=== PATIENT | female | born 1950 | race Caucasian/White ===

== ENCOUNTER 2018-12-18 18:40 | Inpatient (IN) | payer MEDICARE, BC ==
[~2018-12-18] VITALS: Ht 152.4 cm; Wt 67.6 kg
[2018-12-18 18:43] VITALS: BP 171/100
[2018-12-18] MEDS ORDERED: LEVAQUIN 500 M500 M2 PO (18:47)
[2018-12-18 19:46] LABS: BE -0.2 mmol/L (-2 to +3); PCO2 30.9 mmHg (35.0-45.0); pH 7.477 (7.340-7.450)
[2018-12-18 19:54] LABS: PO2 58.7 mmHg (75.0-100.0)
[2018-12-18 19:59] LABS: ABSOLUTE LYMPHOCYTES 0.4 thou/uL (0.8-5.3); NUCLEATED RBCS 0 /100WBC
[2018-12-18 20:00] LABS: ABSOLUTE MONOCYTES 0.3 thou/uL (0.0-1.2); ABSOLUTE NEUTROPHILS 3.1 thou/uL (1.6-8.1); BASOPHILS 0.3 %; HEMATOCRIT 41.2 % (37.0-47.0); HEMOGLOBIN 14.4 gm/dL (12.0-15.0); LYMPHOCYTES 11.6 %; MCH 30.4 pg (26.0-34.0); MCHC 34.8 g/dL (28.0-37.0); MCV 87.4 fL (80.0-100.0); MONOCYTES 7.6 %; PLATELET COUNT* 112 thou/uL (150-400); POLYS 80.5 %; RBC 4.72 mil/uL (4.20-5.00); RDW-CV 13.5 % (10.5-14.5); WBC 3.8 thou/uL (4.0-11.0)
[2018-12-18 20:03] LABS: CALCIUM 9.2 mg/dL (8.5-10.1); CREATININE 0.8 mg/dL (0.6-1.3)
[2018-12-18 20:11] LABS: TOTAL BILIRUBIN 0.6 mg/dL (<0.1-1.0); TOTAL PROTEIN 8.2 g/dL (6.4-8.2)
[2018-12-18 20:45] LABS: URINE BILIRUBIN NEGATIVE (Negative); URINE BLOOD TRACE (Negative); URINE CLARITY CLEAR; URINE COLOR YELLOW; URINE GLUCOSE-RANDOM NEGATIVE (Negative); URINE KETONES 1+ (Negative); URINE LEUKOCYTES-REFLEX NEGATIVE (Negative); URINE NITRITE-REFLEX NEGATIVE (Negative); URINE PROTEIN TRACE (Negative); URINE SPECIFIC GRAVITY 1.025 (1.005-1.030)
[2018-12-18 20:57] LABS: APTT 20.1 Seconds (25.0-31.3); INR 1.2; PROTIME 12.4 Seconds (9.20-11.50)
[2018-12-18 20:58] LABS: BACTERIA-REFLEX 1-9 Few /HPF (None Seen); CASTS None Seen /LPF (None Seen); CRYSTALS None Seen /LPF (None Seen); SQUAMOUS 0-3 Few /LPF (0-3); URINE RBC 0-2 Rare /HPF (0-2); URINE WBC-REFLEX 0-5 Rare /HPF (0-5)
[2018-12-18 23:00] VITALS: BP 140/76
[2018-12-18 23:05] VITALS: BP 144/81
--- NOTE | 2018-12-18 23:30 | NUR ---
REPORT RECEIVED FROM ER, PT ADMITTED TO ROOM. O2 ON AT 3L/NC, NO SOB NOTED. FAMILY AT BEDSIDE. TELEMETRY ON SHOWING SR. PT AFEBRILE AT THIS TIME. SEE ADMISSION ASSESSMENT AND HX. PT CONCERNED ABOUT NO ANTIBIOTICS. LONG DISCUSSION ABOUT TESTS COMING BACK NEG, AFEBRILE AND IVF ORDERS AT THIS TIME. WILL CONT TO MONITOR AND ASSIST NEEDED.
[2018-12-18] MEDS ORDERED: SYNTHROID75 MCG PO (23:54)
[2018-12-19 04:00] VITALS: BP 134/62
--- NOTE | 2018-12-19 05:55 | NUR ---
SLEPT WELL. ASSISTED TO AND FROM BR WITH STEADY GAIT. TEMP 99.0 AND 99.2. DENIES COMPLAINTS. TELEMETRY CONT TO SHOW SR. O2 ON AT 3L/NC, NO SOB NOTED. HS GOALS OF REST AND SAFETY ACHIEVED. HOURLY ROUNDING OBSERVED.
[2018-12-19 07:57] VITALS: BP 147/73
[2018-12-19 08:42] LABS: HEMATOCRIT 38.9 % (37.0-47.0); HEMOGLOBIN 13.7 gm/dL (12.0-15.0); MCH 30.7 pg (26.0-34.0); MCHC 35.1 g/dL (28.0-37.0); MCV 87.4 fL (80.0-100.0); MPV 7.9 fl. (7.2-11.1); RBC 4.45 mil/uL (4.20-5.00); RDW-CV 13.4 % (10.5-14.5); WBC 2.8 thou/uL (4.0-11.0)
[2018-12-19 08:55] LABS: ALBUMIN 3.5 g/dL (3.4-5.0); CALCIUM 8.5 mg/dL (8.5-10.1); CREATININE 0.6 mg/dL (0.6-1.3); POTASSIUM 3.2 mmol/L (3.5-5.1); TOTAL BILIRUBIN 0.7 mg/dL (<0.1-1.0); TOTAL PROTEIN 7.2 g/dL (6.4-8.2)
--- NOTE | 2018-12-19 09:34 | NUR ---
ASSUMED CARE OF PT THIS AM AROUND 0715- COMPLIANCE TECHNICIAN IN PLACE ORDERED, TRACING ST- UPON ASSESSMENT PT NOTED TO BE RESTING IN BED, DAUGHTER AT SIDE- PT A&O X4- CONTINENT OF BOWEL AND BLADDER- SBA WITH TRANSFERS FOR SAFETY- LCTA, RESP EVEN AND UN-LABORED- TEMP NOTED AT 101.7 THIS AM, PRN TYLENOL GIVEN; O2 98% ON 3L VIA NC THIS AM- ABD SOFT/ROUND/NON-TENDER, BS X4 QUADS- LAST BM REPORTED X2 DAYS AGO- ABD US ORDERED AND COMPLETED THIS AM WITH RESULS PENDING AT THIS TIME- IV NOTED TO LEFT AC INTACT, IVF INFUSSING PRESCIBED-PT DENIES ANY C/O PAIN THIS AM- CALL LIGHT AND PERSONAL BELONGINGS WITH IN REACH- HOURLY ROUNDS IN PLACE R/T SAFETY/NEEDS- ALL NEEDS MET AT THIS TIME-WCTM
[2018-12-19 10:34] LABS: INFLUENZA A ANTIGEN None Detected (None Detect); INFLUENZA B ANTIGEN None Detected (None Detect)
[2018-12-19 11:30] VITALS: BP 126/67
[2018-12-19 12:24] VITALS: BP 139/74
--- NOTE | 2018-12-19 13:59 | NUR ---
MET WITH PT'S DTR TO DISCUSS HOME SITUATION/DC PLANNING, PT SLEEPING. PT LIVES WITH SPOUSE AND IS 'FIERCLY' INDEPENDENT PER DTR. USES NO EQUIPMENT AND HAS NOT HAD HH. PLAN IS FOR HER TO RETURN HOME AT DC. WILL FOLLOW
[2018-12-19 16:00] VITALS: BP 133/55
--- NOTE | 2018-12-19 16:41 | EKG ---
[place] [address] ELECTROCARDIOGRAM REPORT Name: SHANE CANADA Room: [address] ADM IN M.R.#: [id number] Admission: 12/18/18 Attend Phys: Enoch Solano MD Discharge: Date of : 48 Report #: [id number] THIS REPORT FOR: //name// [facility] ED Test Date: 2018-12-18 Test Time: 20:03:11 Pat Name: SHANE CANADA Department: Room: [facility] Gender: F Banking Analyst: RENETTA : 1950 Requested By: Anuja Peñaloza Order Number: [id number] MD: Reymundo Solomon Measurements Intervals [place] Rate: 103 P: 32 MS: 144 QRS: 24 QRSD: 91 T: -8 QT: 330 QTc: 432 Interpretive Statements Sinus tachycardia Probable left atrial enlargement Borderline T abnormalities, diffuse leads No previous ECG available for comparison Electronically Signed On 12-19-2018 16:41:41 CDT by Reymundo Solomon [email or web address] <ELECTRONICALLY SIGNED> By: Reymundo Solomon MD, [facility] 12/19/18 1641 02 02 Reymundo Solomon MD, FAC /EPI
--- NOTE | 2018-12-19 17:21 | NUR ---
PT CURRENTLY RESTING IN BED, DAUGHTER AT SIDE- TOP COLLAR MAKER IN PLACE ORDERED, TRACING SR- IV TO LEFT AC INTACT, IVF INFUSSING PRESCIBED- ID HERE TO ASSESS THIS SHIFT WITH DOXYCYCLINE IV AND ROCEPHIN IV ORDERED WITH 1ST DOSES GIVEN THIS SHIFT, NO ADVERSE REACTIONS TO NOTE- LUMBAR X-RAY ORDERED FOR C/O OF BACK PAIN, RESULTS PENDING- FLU SWAB COLLECTED WITH RESULTS NOTED TO BE NEGATIVE THIS SHIFT- TYLENOL X2 THIS SHIFT FOR C/O HEAHACHE AND TEMP THIS SHIFT, MEDICATION NOTED TO BE EFFECTIVE- K+ NOTED TO BE 3.2 THIS AM, REPLACED PER PROTOCOL X2 WITH SCHEDULED REDRAW FOR 1919- FAIR PO INTAKE NOTED THIS SHIFT- PT MAKES NEEDS KNOWN- ALL NEEDS MET AT THIS TIME-WCTM
[2018-12-19 20:00] VITALS: BP 121/70
--- NOTE | 2018-12-19 20:00 | NUR ---
RECEIVED REPORT AND ASSUMED CARE OF PT, ASSESSMENT COMPLETED. FAMILY IN ROOM VISITING, DGT ASKING QUESTIONS ABOUT LAB RESULTS. REVIEWED THESE AND EXPLAINED ALL WERE NORMAL. DISCUSSED PLAN AND VIRAL SYNDROME. RAG PRODUCTION WORKER REMOVED AND CHANGED TO MD/SURG STATUS. NO COMPLAINTS VOICED. WILL CONT TO MONITOR AND ASSIST NEEDED.
[2018-12-20 04:00] VITALS: BP 146/71
[2018-12-20 04:51] LABS: HEMATOCRIT 37.8 % (37.0-47.0); HEMOGLOBIN 13.1 gm/dL (12.0-15.0); MCH 30.3 pg (26.0-34.0); MCHC 34.7 g/dL (28.0-37.0); MCV 87.2 fL (80.0-100.0); MPV 8.4 fl. (7.2-11.1); RBC 4.33 mil/uL (4.20-5.00); RDW-CV 13.6 % (10.5-14.5); WBC 2.4 thou/uL (4.0-11.0)
[2018-12-20 05:08] LABS: ALBUMIN 3.2 g/dL (3.4-5.0); CALCIUM 8.8 mg/dL (8.5-10.1); CREATININE 0.6 mg/dL (0.6-1.3); MAGNESIUM 1.6 mg/dL (1.8-2.4); POTASSIUM 3.6 mmol/L (3.5-5.1); TOTAL BILIRUBIN 0.7 mg/dL (<0.1-1.0)
[2018-12-20 05:10] LABS: HEPATITIS B SURFACE AG Negative (Negative)
--- NOTE | 2018-12-20 06:22 | NUR ---
SLEPT WELL TONIGHT. C/O KOHLER WITH TYLENOL GIVEN. REMAINS AFEBRILE. NO CHANGE IN ASSESSMENT. HS GOALS OF REST AND SAFETY ACHIEVED. HOURLY ROUNDING OBSERVED.
[2018-12-20 08:00] VITALS: BP 123/73
[2018-12-20 16:00] VITALS: BP 131/67
[2018-12-20 19:06] LABS: CMV IgM Abs <30.0 AU/mL (0.0-29.9); EBV EA IgG >150.0 U/mL (0.0-8.9); EBV VCA IgM <36.0 U/mL (0.0-35.9)
[2018-12-20 20:00] VITALS: BP 162/63
[2018-12-21] VITALS: BP 129/60
[2018-12-21 04:22] LABS: HEMATOCRIT 37.2 % (37.0-47.0); HEMOGLOBIN 12.8 gm/dL (12.0-15.0); MCH 30.1 pg (26.0-34.0); MCHC 34.5 g/dL (28.0-37.0); MCV 87.3 fL (80.0-100.0); MPV 9.1 fl. (7.2-11.1); RBC 4.26 mil/uL (4.20-5.00); RDW-CV 13.5 % (10.5-14.5)
[2018-12-21 04:35] LABS: ALBUMIN 3.2 g/dL (3.4-5.0); CALCIUM 8.6 mg/dL (8.5-10.1); CREATININE 0.6 mg/dL (0.6-1.3); POTASSIUM 3.4 mmol/L (3.5-5.1); TOTAL BILIRUBIN 0.5 mg/dL (<0.1-1.0); TOTAL PROTEIN 6.8 g/dL (6.4-8.2)
--- NOTE | 2018-12-21 06:32 | NUR ---
ASSUMED PT CARE AT 1900. PT VOICED NO CONCERNS THIS SHIFT. DENIES PAIN. SR ON MACHINE CASTINGS PLASTERER. HOURLY ROUNDING COMPLETED. CALL LIGHT WITHIN REACH. NEGATIVE SEPSIS PROTOCOL. PT PROGRESSING TOWARDS GOALS.
[2018-12-21 08:01] VITALS: BP 139/66
--- NOTE | 2018-12-21 10:46 | NUR ---
ASSUMED PT CARE REPORT RECEIVED FROM NURSE. PT IS AOX4. ON MEDSURG STATUS. PT RECEIVED MEDICATIONS ORDERED THIS AM. PT ON RA. O2 SATURATION IS 96% ON RA. SECOND DOSE OF MAG REPLACEMENT GIVEN. TYLENOL GIVEN FOR HEADACHE PAIN LEVEL 3. DISCHARGE PENDING. PT HAS NOT OTHER CONCERNS. WILL CONTINUE TO MONITOR
[2018-12-21] MEDS ORDERED: DOXYCYCLINE 10100 MG PO (11:03)
[2018-12-21 11:19] VITALS: BP 139/66
[2018-12-21 12:20] VITALS: BP 133/74
--- NOTE | 2018-12-22 07:26 | CON ---
[address] [address] CONSULTATION Name: SHANE CANADA Room: [address] IN M.R.#: [id number] Admission: 12/18/18 Attend Phys: Enoch Solano MD Discharge: 12/21/18 Date of : 48 Report #: [id number] THIS REPORT FOR: //name// CC: Enoch Gibbs DATE OF SERVICE: 12/19/2018 INFECTIOUS DISEASE CONSULTATION ATTENDING PHYSICIAN: Dr. Weeks. REASON FOR EVALUATION: Febrile illness with evidence of hepatitis, cytopenia. HISTORY OF PRESENT ILLNESS: Chart reviewed, patient examined. This is a 68-year-old woman without significant medical history who is quite active, who presented after 2 to 3-day history of illness, she had onset of what sounds like rigors, shaking, chills, developed fevers. She was noted to have high-grade temperature elevation on presentation up to 103.1 and generalized myalgias and arthralgias in particular severe back pain, did have headache as well, anorexia with poor p.o. intake. She denied any new onset eruptions. On evaluation, she was found to be hypoxemic, although imaging studies failed to show any evidence of pneumonitis or pulmonary embolus including CT of the chest. Laboratory noted lactic acid of 1.3. CBC: White count was low at 3.8 with a platelet count of 112. Blood cultures were collected. Monospot was negative. ALLERGIES: None known. MEDICATIONS: Include famotidine, acetaminophen, levothyroxine, p.r.n. analgesics. PAST MEDICAL HISTORY: Hypothyroidism and history of right knee surgery. SOCIAL HISTORY: Nonsmoker, no ethanol, no illicit drug use. FAMILY HISTORY: Noncontributory. REVIEW OF SYSTEMS: Otherwise, unremarkable 10-point review of system except noted in history of present illness. PHYSICAL EXAMINATION: GENERAL: She is alert, cooperative. She is not encephalopathic. She does appear ill, not overtly toxic, [id number] distress. VITAL SIGNS: Temperature 98.3, T-max last evening 103.1, pulse 97, respirations 20, blood pressure 147/73. SKIN: Warm, dry, [place] [address] CONSULTATION Name: SHANE CANADA Room: [address]#: [id number] Admission: 12/18/18 Attend Phys: Enoch Solano MD Discharge: 12/21/18 Date of : 48 Report #: [id number] HEENT: Normocephalic. Extraocular muscles intact. There are no meningismus. NECK: Supple. LUNGS: Generally clear to auscultation. HEART: Regular. Borderline tachycardic. I do not appreciate a murmur. ABDOMEN: Soft, nontender, nondistended. There is no organomegaly. EXTREMITIES: Distal lower extremities without edema. There is some evidence of superficial lesions, perhaps secondary to some sort of mild trauma or bug bite. GENITOURINARY: Deferred. RECTAL: Deferred. LABORATORY DATA: Influenza antigen was negative. Abdominal ultrasound showed evidence of a prominent gallstone up to 2.2 cm in the gallbladder with smaller ones. There is no evidence of obstructive process. TSH 0.307. CT head was unremarkable. Initial ABGs: pH 7.477, pCO2 of 30.5, pO2 of 58.7. Lactic acid 1.3. Electrolytes: Sodium 139, potassium 4.0, chloride 101, bicarbonate is 30, anion gap of 8, BUN and creatinine 11 and 0.8, glucose of 144. AST of 81, ALT of 73. Total protein 8.2, albumin of 4.0. Estimated GFR of 71. Chest x-ray, no acute process. CBC: White count 3.8, on repeat it was down to 2.8, H and H 14.4 and 41.2, platelets of 112. Repeat with hydration, hemoglobin down to 13.7, platelets up 144. Blood cultures sterile thus far. CTA chest PE protocol, no evidence of PE, mild coronary calcification. Urinalysis 1+ ketones, negative leukocytes. ASSESSMENT: Febrile illness, uncertain etiology, certainly raises question of an arthropod exposure, perhaps zoonosis. We will go ahead and check tick-borne related infections. Empirically started on antimicrobial therapy with doxycycline and also add ceftriaxone as well. At this point, again, she is not overtly toxic, and otherwise hemodynamically relatively stable. <ELECTRONICALLY SIGNED> By: Ramon Mcclure MD 12/22/18 0726 [id number] Mcclure MD /lili
== END 2018-12-21 12:33 | disposition home or self-care (01) | DRG 441 ==
LOC: M.ERS 18:40 → M.TBA-ER 22:25 → M.2W 22:25
PROVIDERS: Internal Medicine; Personal Emergency Response Attendant; ADMIT Internal Medicine
DX: B17.9 Acute viral hepatitis, unspecified (principal); J96.01 Acute respiratory failure with hypoxia; R65.11 Systemic inflammatory response syndrome (SIRS) of non-infectious origin with acute organ dysfunction; E03.9 Hypothyroidism, unspecified; D69.6 Thrombocytopenia, unspecified; K80.20 Calculus of gallbladder without cholecystitis without obstruction; K76.0 Fatty (change of) liver, not elsewhere classified; Z79.899 Other long term (current) drug therapy

== ENCOUNTER → 2019-01-22 | Outpatient (CLI) | payer MEDICARE, BC ==
[~2019-01-22] MED LIST: DOXYCYCLINE 10100 MG PO; LEVAQUIN 500 M500 M2 PO; SYNTHROID75 MCG PO
== END ==
LOC: M.MRI 08:12
DX: K80.20 Calculus of gallbladder without cholecystitis without obstruction (principal); K76.0 Fatty (change of) liver, not elsewhere classified